=== PATIENT | female | born 1940 | race Caucasian/White ===

== ENCOUNTER 2018-01-22 17:12 | Emergency (ER) | payer BC ==
[~2018-01-22] VITALS: Ht 170.2 cm; Wt 74.8 kg
[~2018-01-22 17:12] MED LIST: ASPI-1153 PO; DILT120C21 PO; GABA-531 PO; LISI-209 PO; LORA-258 PO; LORA-259 PO; METO50TA16 PO; OMEP40CA33 PO; SERT50TA12 PO; SIMV40TA5 PO
[2018-01-22 17:29] VITALS: BP_SYST 151
--- NOTE | 2018-01-22 17:29 | NUR ---
Patient to ER bed 06 to gown for evaluation. Side rails up. Report given to COBY KINCAID
--- NOTE | 2018-01-22 17:30 | NUR ---
Pt presents to ED c/o constipation and abd pain. Pt h/o diverticulitis,HTN.
--- NOTE | 2018-01-22 17:50 | NUR ---
ER at bedside examining patient.
--- NOTE | 2018-01-22 18:20 | NUR ---
Urine specimen collected via straight cath.
[2018-01-22 18:25] LABS: HEMATOCRIT 44.8 % (36-48); HEMOGLOBIN 14.3 g/dL (12.0-16.0); MEAN CORPUSCULAR HEMOGLOBIN 30 pg (27-31); MEAN CORPUSCULAR HGB CONC 32 % (32-36); MEAN CORPUSCULAR VOLUME 95 fL (79.0-98.0); PLATELET COUNT (AUTO) 208 K/uL (130-430); RED BLOOD CELL COUNT(AUTO) 4.71 MIL/uL (4.2-6.2); RED CELL DISTRIBUTION WIDTH 12.9 % (9.0-15.0); WHITE BLOOD COUNT (AUTO) 9.4 K/uL (4.8-10.8)
[2018-01-22 18:27] LABS: ANION GAP 9 (5-15); CALCIUM 9.2 mg/dL (8.4-11.0); CHLORIDE 101 mmol/L (98-107); CREATININE 1.05 mg/dL (0.55-1.30); GLUCOSE 101 mg/dL (70-99); POTASSIUM 4.5 mmol/L (3.5-5.1); SODIUM SERUM 136 mmol/L (136-145); UREA NITROGEN, BLOOD 14 mg/dL (8-21)
[2018-01-22 18:31] LABS: ALANINE AMINOTRANSFERASE 20 U/L (12-78); ALBUMIN 3.7 g/dL (3.4-4.8); ASPARTATE AMINOTRANSFERASE 11 U/L (10-37); LIPASE 80 U/L (73-393); TOTAL BILIRUBIN 1.1 mg/dL (0.0-1.0)
[2018-01-22 18:46] LABS: BILIRUBIN,URINE NEGATIVE (NEGATIVE); BLOOD, URINE NEGATIVE (NEGATIVE); CLARITY/URINE CLEAR (CLEAR); COLOR,URINE YELLOW (YELLOW); GLUCOSE,URINE NEGATIVE (NEGATIVE); KETONES,URINE 1+ (NEGATIVE); LEUKOCYTE ESTERASE ,URINE NEGATIVE (NEGATIVE); NITRITE, URINE NEGATIVE (NEGATIVE); PROTEIN URINE NEGATIVE (NEGATIVE); UROBILINOGEN,URINE 0.2 (0.2-1.0)
[2018-01-22 18:48] LABS: BAND % (MANUAL) 0 % (0-6); BASOPHILS % (MANUAL) 0 % (0-2); EOSINOPHILS % (MANUAL) 0 % (0-7); LYMPHOCYTES % (MANUAL) 8 % (20-46); MONOCYTES % (MANUAL) 8 % (0-11)
--- NOTE | 2018-01-22 19:15 | NUR ---
Patient given written and verbal discharge instructions and verbalizes understanding. ER MD discussed with patient the results and treatment provided. Patient in stable condition. ID arm band removed. Rx of mag.citrate,Motrin given. Patient educated on pain management and to follow up with PMD. Pain Scale 2. Opportunity for questions provided and answered. Medication side effect fact sheet provided.
== END 2018-01-22 19:15 | disposition home or self-care (01) ==
LOC: SED 17:12
DX: K59.00 Constipation, unspecified (principal); K21.9 Gastro-esophageal reflux disease without esophagitis; I10 Essential (primary) hypertension; Z95.5 Presence of coronary angioplasty implant and graft; Z79.899 Other long term (current) drug therapy
CPT/HCPCS: 36415; 80053; 81003; 83690-TC; 85007; 85027; 99285

== ENCOUNTER 2022-06-24 10:04 | Emergency (ER) | payer BC ==
[~2022-06-24] VITALS: Ht 160 cm; Wt 72.6 kg
[~2022-06-24 10:04] MED LIST changes: -ASPI-1153 PO; +ASPI-1393 PO; +OMEP40CA20 PO; -OMEP40CA33 PO; +SERT-436 PO; -SERT50TA12 PO; +SIMV-46 PO; -SIMV40TA5 PO
--- NOTE | 2022-06-24 10:20 | NUR ---
Placed in room 03 . Placed on compliance monitor, blood pressure machine and pulse oximeter. To gown for exam. Side rails up. Report given to COBY FOWLER.
--- NOTE | 2022-06-24 10:25 | NUR ---
PT BIB AWAKE AND ALERT AOX4, NO SOB OR DISTYRESS. PT C/O RLQ ABDOMINAL PAIN X30 DAYS. PT STATES PAIN 7/10. PT DENIES N/V/D. PT HAS HX OF HTN, STEMI, DIVERCOLITITIS, VERTIGO.
[2022-06-24 10:27] VITALS: BP_SYST 170
--- NOTE | 2022-06-24 10:27 | NUR ---
MD DR DANIEL AT BEDSIDE
[2022-06-24] MEDS ORDERED: NACL 0.9% 1,000 ML IV ONE (10:45)
--- NOTE | 2022-06-24 10:45 | NUR ---
PT TAKEN TO CT
[2022-06-24 11:25] LABS: BASOPHILS % (AUTO) 0.4 % (0.0-2.0); EOSINOPHILS # (AUTO) 0.1 K/uL (0.0-0.4); EOSINOPHILS % (AUTO) 1.8 % (0.0-4.0); HEMOGLOBIN 13.6 g/dL (12.0-16.0); LYMPHOCYTES % (AUTO) 12.3 % (20.5-51.5); MEAN CORPUSCULAR HEMOGLOBIN 32 pg (27-31); MEAN CORPUSCULAR HGB CONC 34 % (32-36); MEAN CORPUSCULAR VOLUME 93 fL (79.0-98.0); MONOCYTES # (AUTO) 0.5 K/uL (0.0-1.0); NEUTROPHILS # (AUTO) 6.8 K/uL (1.8-7.7); NEUTROPHILS % (AUTO) 79.5 % (40.0-70.0); PLATELET COUNT (AUTO) 202 K/uL (130-430); RED BLOOD CELL COUNT(AUTO) 4.32 MIL/uL (4.2-6.2); RED CELL DISTRIBUTION WIDTH 14.8 % (9.0-15.0); WHITE BLOOD COUNT (AUTO) 8.5 K/uL (4.8-10.8)
[2022-06-24] MEDS ORDERED: KETOROLAC TROMETHAMINE 30 MG VIAL IVP ONE (12:15)
[2022-06-24 12:17] LABS: ANION GAP 10 (5-15); CHLORIDE 105 mmol/L (98-107); CREATININE 0.85 mg/dL (0.55-1.30); GLUCOSE 112 mg/dL (70-99); UREA NITROGEN, BLOOD 15 mg/dL (8-21)
[2022-06-24 12:20] LABS: ALANINE AMINOTRANSFERASE 19 U/L (12-78); ALBUMIN 3.4 g/dL (3.4-4.8); ASPARTATE AMINOTRANSFERASE 13 U/L (10-37); LIPASE 79 U/L (73-393); TOTAL BILIRUBIN 0.9 mg/dL (0.0-1.0)
[2022-06-24] MEDS ORDERED: KETOROLAC TROMETHAMINE 30 MG VIAL IM ONE (12:45)
[2022-06-24 13:09] LABS: BILIRUBIN,URINE NEGATIVE (NEGATIVE); BLOOD, URINE TRACE (NEGATIVE); CLARITY/URINE CLEAR (CLEAR); COLOR,URINE YELLOW (YELLOW); GLUCOSE,URINE NEGATIVE (NEGATIVE); KETONES,URINE 1+ (NEGATIVE); LEUKOCYTE ESTERASE ,URINE NEGATIVE (NEGATIVE); NITRITE, URINE NEGATIVE (NEGATIVE); PH,URINE 5.5 (5.0-8.0); PROTEIN URINE NEGATIVE (NEGATIVE); UROBILINOGEN,URINE 0.2 (0.2-1.0)
[2022-06-24 13:21] LABS: BACTERIA,URINE RARE /HPF (None Seen); RBC,URINE 0-3 /HPF (0-3); WBC,URINE NONE SEEN /HPF (0-3)
[2022-06-24] MEDS ORDERED: HYDR-3917 PO (13:52)
[2022-06-24 14:02] VITALS: BP_SYST 170
--- NOTE | 2022-06-24 14:04 | NUR ---
Patient given written and verbal discharge instructions and verbalizes understanding. ER MD discussed with patient the results and treatment provided. Patient in stable condition. ID arm band removed. Rx of NORCO given. Patient educated on pain management and to follow up with PMD. Pain Scale 0/10. Opportunity for questions provided and answered. Medication side effect fact sheet provided.
== END 2022-06-24 14:04 | disposition home or self-care (01) ==
LOC: SED 10:04
DX: K57.90 Diverticulosis of intestine, part unspecified, without perforation or abscess without bleeding (principal); R10.31 Right lower quadrant pain; K21.9 Gastro-esophageal reflux disease without esophagitis; I10 Essential (primary) hypertension; Z79.899 Other long term (current) drug therapy
CPT/HCPCS: 99285; 74176; 96374; 96361; 71045; 80053; 81000; 83690; 85025; 87040; 87086; 36415; 93005; 76376; 96376; 83605; J1885; J7030

== ENCOUNTER 2023-01-07 21:47 | Inpatient (IN) | payer BC ==
[~2023-01-07] VITALS: Ht 170.2 cm; Wt 75.8 kg
[~2023-01-07 21:47] MED LIST changes: +HYDR-3917 PO
[2023-01-07 22:03] VITALS: BP_SYST 141; PULSE 60; RESP 20; TEMP 97; O2SAT 97
[2023-01-07 22:20] LABS: BASOPHILS # (AUTO) 0.1 K/uL (0.0-0.2); BASOPHILS % (AUTO) 0.5 % (0.0-2.0); EOSINOPHILS # (AUTO) 0.3 K/uL (0.0-0.4); EOSINOPHILS % (AUTO) 2.7 % (0.0-4.0); HEMATOCRIT 39.6 % (36-48); HEMOGLOBIN 12.8 g/dL (12.0-16.0); LYMPHOCYTES # (AUTO) 2.4 K/uL (1.0-5.5); LYMPHOCYTES % (AUTO) 21.2 % (20.5-51.5); MEAN CORPUSCULAR HEMOGLOBIN 31 pg (27-31); MEAN CORPUSCULAR HGB CONC 32 % (32-36); MEAN CORPUSCULAR VOLUME 95 fL (79.0-98.0); MONOCYTES # (AUTO) 0.8 K/uL (0.0-1.0); MONOCYTES % (AUTO) 6.9 % (1.7-9.3); NEUTROPHILS # (AUTO) 7.8 K/uL (1.8-7.7); NEUTROPHILS % (AUTO) 68.7 % (40.0-70.0); PLATELET COUNT (AUTO) 237 K/uL (130-430); RED BLOOD CELL COUNT(AUTO) 4.17 MIL/uL (4.2-6.2); RED CELL DISTRIBUTION WIDTH 14.7 % (9.0-15.0); WHITE BLOOD COUNT (AUTO) 11.3 K/uL (4.8-10.8)
[2023-01-07 22:36] LABS: ANION GAP 9 (5-15); CALCIUM 8.9 mg/dL (8.4-11.0); CARBON DIOXIDE 25 mmol/L (23-29); CHLORIDE 107 mmol/L (98-107); GLUCOSE 119 mg/dL (74-106); POTASSIUM 3.8 mmol/L (3.5-5.1); SODIUM SERUM 141 mmol/L (136-145); UREA NITROGEN, BLOOD 13 mg/dL (8-21)
[2023-01-07 22:54] LABS: ALANINE AMINOTRANSFERASE 19 U/L (12-78); ALBUMIN 3.3 g/dL (3.4-4.8); ASPARTATE AMINOTRANSFERASE 14 U/L (10-37); TOTAL BILIRUBIN 0.6 mg/dL (0.0-1.0); TOTAL PROTEIN, SERUM 6.7 g/dL (6.4-8.3)
[2023-01-07] MEDS ORDERED: ASPIRIN 325 MG TABLET PO ONE (23:30)
[2023-01-08] LABS: PROTHROMBIN TIME 10.2 SECS (9.5-12.5)
[2023-01-08] MEDS ORDERED: HEPARIN SODIUM,PORCINE 5,000 UNITS/ML VIAL IVP ONE
[2023-01-08] MEDS ORDERED: HEPARIN 25,000 UNITS/D5W 250ML 250 ML IV ONE (00:15)
[2023-01-08] MEDS ORDERED: MORPHINE 2 MG/ML INJ. SYRINGE IVP PRN ×2 (00:15→09:45)
[2023-01-08] MEDS ORDERED: HEPARIN 25,000 UNITS/D5W 250ML 250 ML IV SCH (00:15)
[2023-01-08] MEDS ORDERED: HEPARIN SODIUM,PORCINE 2000 UNITS/0.4 ML BOLUS IVP PRN (07:15)
[2023-01-08] MEDS ORDERED: HEPARIN SODIUM,PORCINE 3000 UNITS/0.6 ML BOLUS IVP PRN (07:15)
[2023-01-08] MEDS: LOSARTAN POTASSIUM 25 MG TABLET PO SCH (09:00)
[2023-01-08] MEDS ORDERED: METOPROLOL SUCCINATE 25 MG TAB.SR.24H (TOPROL XL) PO SCH (09:00)
[2023-01-08] MEDS ORDERED: NALOXONE HCL 0.4 MG/ML AMP (NARCAN) IVP PRN ×2 (09:45)
[2023-01-08] MEDS ORDERED: HYDROcodone/ACETAMIN 5-325 MG TAB (NORCO/ VICODIN) PO PRN (09:45)
[2023-01-08] MEDS ORDERED: METO50CA PO (09:56)
[2023-01-08] MEDS ORDERED: ASPI-524 PO (09:56)
[2023-01-08] MEDS ORDERED: GABA-534 PO (09:56)
[2023-01-08] MEDS ORDERED: APIX5TAB PO (09:56)
[2023-01-08] MEDS ORDERED: LOSA100T24 PO (09:56)
[2023-01-08] MEDS ORDERED: METOPROLOL TARTRATE 25 MG TABLET PO ONE (10:00)
[2023-01-08] MEDS ORDERED: ATORVASTATIN 20 MG TABLET PO ONE (10:00)
[2023-01-08] MEDS: ASPIRIN 81 MG TAB.CHEW PO SCH (10:08)
[2023-01-08 20:00] VITALS: BP_SYST 172; PULSE 65; RESP 20; TEMP 98.1; O2SAT 95
[2023-01-09] VITALS: BP_SYST 168; PULSE 63; RESP 20; TEMP 98; O2SAT 96
[2023-01-09] MEDS: NITROGLYCERIN 0.4 MG TAB.SUBL SL PRN (01:43)
[2023-01-09] MEDS: METOPROLOL TARTRATE 25 MG TABLET PO SCH ×3 (01:45→21:00)
[2023-01-09] MEDS ORDERED: *HEPARIN PER PHARMACY XX ONE (03:15)
[2023-01-09] MEDS ORDERED: HEPARIN SODIUM,PORCINE 2000 UNITS/0.4 ML BOLUS IVP PRN (04:30)
[2023-01-09] MEDS ORDERED: HEPARIN SODIUM,PORCINE 3000 UNITS/0.6 ML BOLUS IVP PRN (04:30)
[2023-01-09] MEDS ORDERED: HEPARIN SODIUM,PORCINE 5,000 UNITS/ML VIAL IV ONE (06:45)
[2023-01-09] MEDS: HEPARIN 25,000 UNITS in 250 ML PREMIX IV PRN ×2 (07:03→14:20)
[2023-01-09 07:54] LABS: BASOPHILS % (AUTO) 0.4 % (0.0-2.0); EOSINOPHILS # (AUTO) 0.2 K/uL (0.0-0.4); EOSINOPHILS % (AUTO) 2.2 % (0.0-4.0); HEMATOCRIT 35.4 % (36-48); HEMOGLOBIN 11.8 g/dL (12.0-16.0); LYMPHOCYTES # (AUTO) 1.6 K/uL (1.0-5.5); LYMPHOCYTES % (AUTO) 17.5 % (20.5-51.5); MEAN CORPUSCULAR HEMOGLOBIN 32 pg (27-31); MEAN CORPUSCULAR HGB CONC 33 % (32-36); MEAN CORPUSCULAR VOLUME 95 fL (79.0-98.0); MONOCYTES # (AUTO) 0.5 K/uL (0.0-1.0); MONOCYTES % (AUTO) 5.8 % (1.7-9.3); NEUTROPHILS # (AUTO) 6.8 K/uL (1.8-7.7); NEUTROPHILS % (AUTO) 74.1 % (40.0-70.0); PLATELET COUNT (AUTO) 192 K/uL (130-430); RED BLOOD CELL COUNT(AUTO) 3.74 MIL/uL (4.2-6.2); WHITE BLOOD COUNT (AUTO) 9.2 K/uL (4.8-10.8)
[2023-01-09 08:00] VITALS: BP_SYST 123; PULSE 64; RESP 18; TEMP 98.6; O2SAT 96
[2023-01-09 08:33] LABS: ALANINE AMINOTRANSFERASE 15 U/L (12-78); ALBUMIN 2.9 g/dL (3.4-4.8); ANION GAP 9 (5-15); ASPARTATE AMINOTRANSFERASE 15 U/L (10-37); CALCIUM 7.9 mg/dL (8.4-11.0); CARBON DIOXIDE 25 mmol/L (23-29); CHLORIDE 106 mmol/L (98-107); CREATININE 0.64 mg/dL (0.55-1.30); GLUCOSE 108 mg/dL (74-106); POTASSIUM 3.9 mmol/L (3.5-5.1); SODIUM SERUM 140 mmol/L (136-145); TOTAL PROTEIN, SERUM 5.9 g/dL (6.4-8.3); UREA NITROGEN, BLOOD 10 mg/dL (8-21)
[2023-01-09] MEDS: LOSARTAN POTASSIUM 25 MG TABLET PO SCH (09:35)
[2023-01-09] MEDS: ASPIRIN 81 MG TAB.CHEW PO SCH (09:36)
[2023-01-09] MEDS: ATORVASTATIN 20 MG TABLET PO SCH (09:37)
[2023-01-09 11:30] VITALS: BP_SYST 132; PULSE 55; RESP 20; TEMP 97.5; O2SAT 97
[2023-01-09 16:00] VITALS: BP_SYST 135; PULSE 56; RESP 20; TEMP 97.9
[2023-01-09 20:00] VITALS: BP_SYST 133; PULSE 60; RESP 20; TEMP 98; O2SAT 97
[2023-01-10] MEDS: NITROGLYCERIN 0.4 MG TAB.SUBL SL PRN (05:00)
[2023-01-10 05:05] LABS: BASOPHILS % (AUTO) 0.3 % (0.0-2.0); EOSINOPHILS # (AUTO) 0.2 K/uL (0.0-0.4); HEMATOCRIT 35.2 % (36-48); HEMOGLOBIN 11.9 g/dL (12.0-16.0); LYMPHOCYTES % (AUTO) 18.2 % (20.5-51.5); MEAN CORPUSCULAR HEMOGLOBIN 32 pg (27-31); MEAN CORPUSCULAR HGB CONC 34 % (32-36); MEAN CORPUSCULAR VOLUME 93 fL (79.0-98.0); MONOCYTES # (AUTO) 0.6 K/uL (0.0-1.0); MONOCYTES % (AUTO) 5.8 % (1.7-9.3); NEUTROPHILS # (AUTO) 8.2 K/uL (1.8-7.7); NEUTROPHILS % (AUTO) 73.7 % (40.0-70.0); PLATELET COUNT (AUTO) 189 K/uL (130-430); RED BLOOD CELL COUNT(AUTO) 3.76 MIL/uL (4.2-6.2); RED CELL DISTRIBUTION WIDTH 14.5 % (9.0-15.0); WHITE BLOOD COUNT (AUTO) 11.1 K/uL (4.8-10.8)
[2023-01-10 05:20] LABS: ANION GAP 10 (5-15); CALCIUM 8.3 mg/dL (8.4-11.0); CARBON DIOXIDE 26 mmol/L (23-29); CHLORIDE 104 mmol/L (98-107); CREATININE 0.69 mg/dL (0.55-1.30); GLUCOSE 115 mg/dL (74-106); POTASSIUM 3.9 mmol/L (3.5-5.1); SODIUM SERUM 140 mmol/L (136-145); UREA NITROGEN, BLOOD 8 mg/dL (8-21)
[2023-01-10 05:30] VITALS: BP_SYST 139; PULSE 54; RESP 16; TEMP 98; O2SAT 98
[2023-01-10] MEDS ORDERED: ACETAMINOPHEN 325 MG TABLET PO PRN (06:45)
[2023-01-10] MEDS ORDERED: ONDANSETRON HCL 4 MG/2 ML VIAL IVP PRN (06:45)
[2023-01-10 07:30] VITALS: BP_SYST 159; PULSE 57; RESP 18; TEMP 97; O2SAT 97
[2023-01-10] MEDS: METOPROLOL TARTRATE 25 MG TABLET PO SCH ×2 (09:00→21:15)
[2023-01-10] MEDS: ASPIRIN 81 MG TAB.CHEW PO SCH (09:32)
[2023-01-10] MEDS: ATORVASTATIN 20 MG TABLET PO SCH (09:33)
[2023-01-10] MEDS: LOSARTAN POTASSIUM 25 MG TABLET PO SCH (09:33)
[2023-01-10 11:30] VITALS: BP_SYST 140; PULSE 59; RESP 18; TEMP 97.5; O2SAT 98
[2023-01-10] MEDS ORDERED: MECLIZINE HCL 25 MG TABLET (ANITVERT) PO ONE (12:00)
[2023-01-10] MEDS: HEPARIN 25,000 UNITS in 250 ML PREMIX IV PRN (12:59)
[2023-01-10 16:00] VITALS: BP_SYST 138; PULSE 60; RESP 18; TEMP 97.5; O2SAT 98
[2023-01-10] MEDS ORDERED: CALCIUM GLUCONATE 2 GM in NS 100 ML IV ONE (17:00)
[2023-01-10 20:45] VITALS: BP_SYST 129; PULSE 70; RESP 18; TEMP 98.2; O2SAT 98
[2023-01-10] MEDS: MECLIZINE HCL 25 MG TABLET (ANITVERT) PO SCH (21:14)
[2023-01-10 23:22] VITALS: BP_SYST 136; PULSE 64; RESP 18; TEMP 98; O2SAT 98
[2023-01-11] VITALS (10 sets, daily range): BP systolic 113–140; PULSE 56–64; RESP 16–19; TEMP 97–97.9; O2SAT 96–99
[2023-01-11] MEDS: NITROGLYCERIN 0.4 MG TAB.SUBL SL PRN ×3 (03:44→06:49)
[2023-01-11 05:53] LABS: BASOPHILS # (AUTO) 0.1 K/uL (0.0-0.2); BASOPHILS % (AUTO) 0.5 % (0.0-2.0); EOSINOPHILS # (AUTO) 0.2 K/uL (0.0-0.4); EOSINOPHILS % (AUTO) 2.1 % (0.0-4.0); LYMPHOCYTES # (AUTO) 2.1 K/uL (1.0-5.5); LYMPHOCYTES % (AUTO) 18.9 % (20.5-51.5); MEAN CORPUSCULAR HEMOGLOBIN 32 pg (27-31); MEAN CORPUSCULAR HGB CONC 33 % (32-36); MEAN CORPUSCULAR VOLUME 94 fL (79.0-98.0); MONOCYTES # (AUTO) 0.8 K/uL (0.0-1.0); MONOCYTES % (AUTO) 7.1 % (1.7-9.3); NEUTROPHILS # (AUTO) 7.9 K/uL (1.8-7.7); NEUTROPHILS % (AUTO) 71.4 % (40.0-70.0); PLATELET COUNT (AUTO) 220 K/uL (130-430); RED BLOOD CELL COUNT(AUTO) 3.83 MIL/uL (4.2-6.2); RED CELL DISTRIBUTION WIDTH 14.8 % (9.0-15.0); WHITE BLOOD COUNT (AUTO) 11.1 K/uL (4.8-10.8)
[2023-01-11 06:14] LABS: ALANINE AMINOTRANSFERASE 17 U/L (12-78); ANION GAP 8 (5-15); ASPARTATE AMINOTRANSFERASE 13 U/L (10-37); CARBON DIOXIDE 28 mmol/L (23-29); CHLORIDE 103 mmol/L (98-107); CREATININE 0.83 mg/dL (0.55-1.30); GLUCOSE 117 mg/dL (74-106); POTASSIUM 3.7 mmol/L (3.5-5.1); SODIUM SERUM 139 mmol/L (136-145); TOTAL BILIRUBIN 0.9 mg/dL (0.0-1.0); UREA NITROGEN, BLOOD 10 mg/dL (8-21)
[2023-01-11] MEDS: HEPARIN 25,000 UNITS in 250 ML PREMIX IV PRN (07:05)
[2023-01-11] MEDS: MECLIZINE HCL 25 MG TABLET (ANITVERT) PO SCH ×2 (09:15→20:06)
[2023-01-11] MEDS: LOSARTAN POTASSIUM 25 MG TABLET PO SCH (09:16)
[2023-01-11] MEDS: ASPIRIN 81 MG TAB.CHEW PO SCH (09:16)
[2023-01-11] MEDS: ATORVASTATIN 20 MG TABLET PO SCH (09:17)
[2023-01-11] MEDS: METOPROLOL TARTRATE 25 MG TABLET PO SCH ×2 (09:17→20:07)
== END 2023-01-11 20:15 | disposition short-term general hospital (02) | DRG 281 ==
LOC: SED 21:47 → STU 01-08 00:10
PROVIDERS: ADMIT Family Medicine; ATTEND Preventive Medicine Preventive Medicine/Occupational Environmental Medicine
DX: I21.4 Non-ST elevation (NSTEMI) myocardial infarction (principal); D68.59 Other primary thrombophilia; E44.0 Moderate protein-calorie malnutrition; I25.110 Atherosclerotic heart disease of native coronary artery with unstable angina pectoris; I10 Essential (primary) hypertension; K21.9 Gastro-esophageal reflux disease without esophagitis; I48.0 Paroxysmal atrial fibrillation; E78.5 Hyperlipidemia, unspecified; D64.9 Anemia, unspecified; E88.09 Other disorders of plasma-protein metabolism, not elsewhere classified; E83.52 Hypercalcemia; Z79.82 Long term (current) use of aspirin; Z79.899 Other long term (current) drug therapy; Z79.01 Long term (current) use of anticoagulants; Z68.26 Body mass index [BMI] 26.0-26.9, adult; I11.9 Hypertensive heart disease without heart failure; H81.09 Meniere's disease, unspecified ear
CPT/HCPCS: 36415; 71045; 80048; 80053; 83880; 84484; 85025; 85610-TC; 85730-TC; 93005; 93306; 99291; G0378; J0610; J1644; J2270; J2405; J8597